=== PATIENT | male | born 1995 | race African-American/Black ===

== ENCOUNTER 2019-08-19 10:17 | Emergency (ER) | payer OTHER | END 2019-08-19 10:43 | disposition home or self-care (01) | LOC: ERS 10:17 | DX: J02.8 Acute pharyngitis due to other specified organisms (principal) | CPT/HCPCS: 99283 ==

== ENCOUNTER 2019-10-13 13:47 | Emergency (ER) | payer OTHER | END 2019-10-13 15:26 | disposition home or self-care (01) | LOC: ERS 13:47 | DX: L03.317 Cellulitis of buttock (principal); F41.9 Anxiety disorder, unspecified; F32.9 Major depressive disorder, single episode, unspecified; F17.210 Nicotine dependence, cigarettes, uncomplicated | CPT/HCPCS: 10060 ==

== ENCOUNTER 2019-11-19 11:00 | Emergency (ER) | payer OTHER ==
[2019-11-20 13:56] LABS: SARS-CoV-2 MS2 Positive; SARS-CoV-2 N Gene Negative; SARS-CoV-2 S Gene Negative; SARS-CoV-2 orf1ab Negative
== END 2019-11-19 11:35 | disposition home or self-care (01) ==
LOC: ERS 11:00
DX: J02.9 Acute pharyngitis, unspecified (principal); F41.9 Anxiety disorder, unspecified; F32.9 Major depressive disorder, single episode, unspecified; F17.210 Nicotine dependence, cigarettes, uncomplicated; Z20.828 Contact with and (suspected) exposure to other viral communicable diseases
CPT/HCPCS: 87635; 99283; U0003

== ENCOUNTER 2020-01-29 08:53 | Emergency (ER) | payer OTHER ==
[2020-01-29 18:27] LABS: SARS-CoV-2 MS2 Positive; SARS-CoV-2 N Gene Negative; SARS-CoV-2 S Gene Negative; SARS-CoV-2 by NAA Not Detected (NotDetected); SARS-CoV-2 orf1ab Negative
== END 2020-01-29 10:32 | disposition home or self-care (01) ==
LOC: ERS 08:53
DX: R51 Headache (principal); R50.9 Fever, unspecified; R05 Cough; Z20.828 Contact with and (suspected) exposure to other viral communicable diseases; F41.9 Anxiety disorder, unspecified; F32.9 Major depressive disorder, single episode, unspecified; F43.10 Post-traumatic stress disorder, unspecified
CPT/HCPCS: 87635; 99284; U0003

== ENCOUNTER 2022-10-01 11:22 | Observation (INO) | payer OTHER ==
[2022-10-01] MEDS ORDERED: Labetalol HCl 100 MG/20 ML VIAL SLOW IVP PRN (12:53)
[2022-10-01] MEDS ORDERED: hydrALAZINE 20 MG/ML VIAL SLOW IVP PRN (12:53)
[2022-10-01] MEDS ORDERED: Senokot S 8.6-50 MG TAB PO PRN (12:58)
[2022-10-01] MEDS ORDERED: Ondansetron ODT 4 MG TAB PO PRN (12:58)
[2022-10-01] MEDS ORDERED: Ondansetron PF 4 MG/2 ML Vial IVP PRN (12:58)
[2022-10-01] MEDS ORDERED: Acetaminophen 325 MG TAB PO PRN (12:58)
[2022-10-01] MEDS ORDERED: Calcium Carbonate 500 MG ChewTAB PO PRN (12:58)
[2022-10-01] MEDS ORDERED: Magnesium 2 GM/50 ML(in water) 2 GM in Premix Bag 1 BAG IVPB SCH (13:00)
[2022-10-01 13:05] VITALS: BMI 34.4
[2022-10-01] MEDS ORDERED: Lorazepam 1 MG TAB PO PRN (13:33)
[2022-10-01 16:03] VITALS: BP 128/74; TEMP 97.5
[2022-10-01] MEDS ORDERED: Atorvastatin Calcium 40 MG TAB PO SCH (21:00)
[2022-10-01] MEDS ORDERED: Famotidine 20 MG TAB PO SCH (21:00)
[2022-10-02] MEDS ORDERED: Aspirin 81 mg Enteric Coated Tablet PO SCH (09:00)
== END 2022-10-01 18:43 | disposition home or self-care (01) ==
LOC: NEURO 12:29
PROVIDERS: ADMIT Internal Medicine; ATTEND Internal Medicine
DX: R20.2 Paresthesia of skin (principal); R53.1 Weakness; E87.6 Hypokalemia; I12.9 Hypertensive chronic kidney disease with stage 1 through stage 4 chronic kidney disease, or unspecified chronic kidney disease; N18.2 Chronic kidney disease, stage 2 (mild); K21.9 Gastro-esophageal reflux disease without esophagitis; I07.1 Rheumatic tricuspid insufficiency; E66.9 Obesity, unspecified; Z68.34 Body mass index [BMI] 34.0-34.9, adult; Z98.84 Bariatric surgery status
CPT/HCPCS: 70551; 93306; 96365; 96366; G0378; J3475

== ENCOUNTER 2024-04-12 17:01 | Emergency (ER) | payer OTHER ==
[~2024-04-12 17:01] MED LIST: Iopamidol-370 76% 500 ML MDV (1 ML CHARGE) ONE
[2024-04-12 17:43] LABS: #Basophils 0.03 10x3/uL (0.0-0.2); %Basophils 0.5 % (0.0-1.0); %Eosinophils 0.5 % (0.0-10.0); %Lymphocytes 35.6 % (21.0-51.0); %Monocytes 6.5 % (0.0-10.0); %Neutrophils 56.5 % (42.0-75.0); Hematocrit 39.5 % (42.0-52.0); Hemoglobin 14.3 g/dL (14.0-18.0); Mean Corpuscular HGB CONC 36.2 g/dL (32.0-36.0); Mean Corpuscular Hemoglobin 34.7 pg (27.0-31.0); Mean Corpuscular Volume 95.9 fL (78.0-98.0); Mean Platelet Volume 8.4 fL (7.4-10.4); Platelet Count 242 10x3/uL (130-400); Red Blood Cell (RBC) Count 4.12 mill/uL (4.70-6.10)
[2024-04-12 18:04] LABS: ALT (SGPT) 65 U/L (8-55); AST (SGOT) 173 U/L (5-34); Albumin 4.1 g/dL (3.5-5.0); Alkaline Phosphatase 116 U/L (40-110); Anion Gap 17 mmol/L (10-20); BUN (Urea Nitrogen) 6 mg/dL (8.9-20.6); Bilirubin, Total 3.1 mg/dL (0.2-1.2); Calc. Creatinine Clearance 0 mL/min (70-130); Calcium 9.8 mg/dL (7.8-10.44); Carbon Dioxide 25 mmol/L (22-29); Chloride 97 mmol/L (98-107); Estimated GFR 87; Globulin 3.8 g/dL (2.4-3.5); Glucose 112 mg/dL (70-105); Potassium 3.7 mmol/L (3.5-5.1); Protein, Total 7.9 g/dL (6.0-8.3)
[2024-04-12 18:13] LABS: Sodium 135 mmol/L (136-145)
[2024-04-12 19:00] LABS: Bacteria/HPF None Seen HPF (None Seen); Bilirubin Negative (Negative); Blood, Urine Negative (Negative); CAUTI Indications for Culture Pelvic or flank pain; Clarity Clear (Clear); Glucose, Urine (Dipstick) Normal (Negative); Ketone, Urine 10 mg/dL (Negative); Leukocyte Negative Leu/uL (Negative); Nitrite Negative (Negative); Protein, Urine (Dipstick) Negative (Neg-Trace); RBC/HPF None Seen HPF (0-3); Specific Gravity, Urine 1.006 (1.002-1.036); Squamous Epithelial None Seen HPF (0-3); Urobilinogen Normal mg/dL (Less than 2); WBC/HPF 0-3 HPF (0-3)
[2024-04-12 19:01] LABS: Urine Culture Reflex No No
[2024-04-12] MEDS ORDERED: Ondansetron PF 4 MG/2 ML Vial ONE (20:47)
[2024-04-12] MEDS ORDERED: Ketorolac Tromethamine 30 MG (1 mL) VIAL ONE (20:47)
== END 2024-04-12 22:06 | disposition home or self-care (01) ==
LOC: ERS 17:01
DX: K52.9 Noninfective gastroenteritis and colitis, unspecified (principal); I10 Essential (primary) hypertension
CPT/HCPCS: 36415; 74177; 80053; 81001; 83690; 85025; 96374; 96375; J1885; J2405; Q9967